=== PATIENT | male | born 1995 | race Caucasian/White ===

== ENCOUNTER → 2024-10-10 14:49 | Outpatient (REF) | payer BC, SELFPAY ==
--- OUTSIDE RECORDS SUMMARY | 2024-10-10 14:53 | XMS_ITS | Clinical Summary ---
Author Organization [facility] ity Address [address] [place] [address] Care Team Providers Care Laboratory Animal Facility Supervisor Name Role Phone Carlo Macdonald MD Primary Care Provider [phone] Surgical History Surgery Date Site/Laterality Comments OTHER SURGICAL HISTORY PROCEDURE: DENIES PREVIOUS SURGERY Medical History Medical History Date Comments Routine or child health check DX:Routine or child health check Varicella without mention of complication DX:Varicella without mention of complication Acute suppurative otitis med ia without spontaneous rupture of eardrum DX:Acute suppurative ot itis media without spontaneous rupture of eardrum Abdominal pain, epigastric 02/16 DX:Ab dominal pain, epigastric; COMMENT: normal labs, nl KUB, Bentyl helped in the past Stenosis of lumbosacral spine 12/20/2012 DX :Stenosis of lumbosacral spine Pertussis 02/20 DX:Pertussis; CO MMENT: serology pos Family History Medical History Relation Name Comments Asthma Brother 1 Other cancer Maternal Grandfather Heart attack Maternal Grandmother Hypertension Mother Relation Name Status Comments Brother 1 Brother 2 Alive - good Brother 3 Alive - good Brother 4 Alive - good Brother 5 Alive - asthma Father Alive 1970 - good Maternal Grandfather [place] Maternal Grandmother (Age 79) [place] Mother Alive 1964 - disc pro bs back and neck Social History Tobacco Use Types Packs/Day Years Used Date Smoking Tobacco: Never Smokeless Tobacco: Never Alcohol Use Standard Drinks/Week Comments Not Asked 0 (1 standard drink = 0.6 oz pur e alcohol) Sex and Gender Information Value Date Recorded Sex Assigned at Not on file Gender Identity Not on file Sexual Orientation Not on file Obstetrics History Plan of Treatment Health Maintenance Due Date Last Done Comments DTaP,Tdap,and Td Vaccines (7 - Td or Tdap) 05/28/2017 05/28/2007, 03/07/2000, 01/05/1997, Additional history exists COVID-19 Vaccine (2023- season) 2024 Influenza Vaccine (#1) 2024 06/24/2008 Hepatitis B Vaccines Completed 07/03/1995, 01/30/1995, 1994 HIB Vaccines Completed 03/24/1996, 06/11, 04/02/1995, Additional history exists MMR Vaccines Completed 04/06/1999, 12/06/1995 IPV Vaccines Completed 03/07/2000, 03/10, 07/03/1995, Additional history exists Meningococcal ACWY Vaccine Aged Out 05/28/2007 N o longer eligible based on patient's age to complete this topic Varicella Vaccines Completed 05/09/2011, 04/05/2011 HPV Vaccines Aged Out No longer eligi ble based on patient's age to complete this topic Hepatitis A Vaccines Aged Out No long er eligible based on patient's age to complete this topic Pneumococcal Vaccine: Pediatrics (0 to 5 Years) and At-Risk Patients (6 to 64 Years) Aged Out No longer eligible based on patient's age to complete this topic RSV Immunization Patients Under 20 months Aged Out No longer eligible based on patient's age to complete this topic Advance Directives Documents on File Type Date Recorded Patient Assorter Expl anation Health Care Decision (hx) 01/24/2020 AD KATE DIRECTIVE Health Care Decision (hx) 01/24/2020 AD KATE DIRECTIVE Care Teams Laboratory Animal Facility Supervisor Relationship Specialty Start Date End Date Carlo Macdonald MD [address] [place] [address] PCP - General 04/05/15
--- NOTE | 2024-10-10 14:54 | ECG_ITS ---
Test Reason : [facility] Blood Pressure : */* mmHG Vent. Rate : 79 BPM Atrial Rate : 79 BPM P-R Int : 136 ms QRS Dur : 100 ms QT Int : 362 ms P-R-T Axes : 67 68 53 degrees QTcB Int : 415 ms Normal sinus rhythm Normal ECG No previous ECGs available Referred By: Emily Bell Electronically Signed By: JUDD TONG
== END ==
LOC: HO.CARD 14:49
PROVIDERS: PCP Physician Assistant; Visit Provider Registered Nurse
DX: Z79.899 Other long term (current) drug therapy (principal)
CPT/HCPCS: 93005